=== PATIENT | male | born 1940 | race Caucasian/White ===

== ENCOUNTER → 2019-05-19 08:15 | Outpatient (BNVA) | payer MEDICARE, BC, SELFPAY | PROVIDERS: PCP Family Medicine; Referring Provider Family Medicine; Visit Provider Specialist | DX: R42 Dizziness and giddiness (principal); G43.711 Chronic migraine without aura, intractable, with status migrainosus; R20.0 Anesthesia of skin; R29.90 Unspecified symptoms and signs involving the nervous system | CPT/HCPCS: 99204 ==

== ENCOUNTER 2019-06-14 12:21 | Outpatient (CLI) | payer MEDICARE, BC, SELFPAY ==
--- NOTE | 2019-06-14 13:00 | MR_ITS ---
WS: [id number] MRI of the head and brain without IV contrast, 06/14/2019 Clinical Data: Unsteady gait Comparison: CT head, 12/02/2016. Findings: Ventricular system is normal without shift. No recent infarct or hemorrhage is seen. No abnormal intracerebral mass is present. The cerebellum and brainstem are unremarkable. The carotid arteries show no aneurysms. The regions of nerves VII and VIII and the mastoid air cells are unremarkable. The pituitary, intraorbital contents and paranasal sinuses are normal. No evidence of metastatic disease is seen. MR/MR head wo con* [id number] Impression: Negative MRI of the head and brain.
== END 2019-06-14 12:22 | disposition home or self-care (01) ==
LOC: RADSHAW 12:26
PROVIDERS: PCP Family Medicine; Visit Provider Specialist
DX: R29.90 Unspecified symptoms and signs involving the nervous system (principal)
CPT/HCPCS: 70551